=== PATIENT | male | born 1950 ===

== ENCOUNTER 2020-11-01 00:48 | Emergency (ER) | payer MEDICARE, BC ==
[2020-11-01] MEDS ORDERED: Acetaminophen/oxyCODONE 325-5 MG Tab PO ONE (00:49)
--- NOTE | 2020-11-01 01:15 | EDM.PDOC ---
ED HPI GENERAL MEDICAL PROBLEM - General Stated Complaint: PAIN IN LEFT LEG Time Seen by Provider: 11/01/20 01:15 Source of Information: Reports: Patient, Family, RN, RN Notes Reviewed History Limitations: Reports: No Limitations - History of Present Illness INITIAL COMMENTS - FREE TEXT/NARRATIVE: Patient is a 70-year-old male who presents to ER with complaint of left anterior lower extremity pain. Patient states around New Year' he did have a tibia stress fracture. He wore a Cam walking boot, and this did heal. Patient states his left lower leg has been hurting for approximately a month but last evening got very severe. Very tender to touch to the anterior left lower leg, tender to stand and walk. Patient rates pain 10/10. Patient states no new injury to the ankle or lower leg. Onset: Gradual Left Lower Leg Pain Score (Numeric/FACES): 10 - Related Data Allergies Allergy/AdvReac Type Severity Reaction Status Date / Time No Known Allergies Allergy Verified 11/01/20 01:20 Home Meds: Home Meds allopurinoL [Allopurinol] 300 mg PO DAILY 10/11/13 [History] amLODIPine [Norvasc] 2.5 mg PO DAILY 10/11/13 [History] Fenofibrate Nanocrystallized [Fenofibrate] 145 mg PO DAILY 11/01/20 [History] Olmesartan [Benicar] 10 mg PO DAILY 11/01/20 [History] Past Medical History Other Cardiovascular History: low heart rate Oncologic (Cancer) History: Reports: Prostate - Past Surgical History Other Musculoskeletal Surgeries/Procedures:: back surgery in 1996 Social & Family History - Living Situation & Occupation Living situation: Reports: with Family Occupation: Retired Review of Systems - Review of Systems Review Of Systems: Comprehensive ROS is negative, except as noted in HPI. ED EXAM, GENERAL - Physical Exam Exam: See Below Exam Limited By: No Limitations General Appearance: Alert, WD/WN, Mild Distress Eye Exam: Bilateral Eye: EOMI, Normal Inspection Ears: Normal External Exam, Hearing Grossly Normal Nose: Normal Inspection Throat/Mouth: Normal Inspection, Normal Voice, No Airway Compromise Head: Atraumatic, Normocephalic Neck: Normal Inspection, Supple, Non-Tender, Full Range of Motion Respiratory/Chest: No Respiratory Distress, Lungs Clear, Normal Breath Sounds, No Accessory Muscle Use, Chest Non-Tender Cardiovascular: Normal Peripheral Pulses, Regular Rate, Rhythm, No Edema, No Gallop, No JVD, No Murmur, No Rub Peripheral Pulses: 2+: Radial (L), Radial (R), Dorsalis Pedis (L) GI/Abdominal: Normal Bowel Sounds, Soft, Non-Tender (Male) Exam: Deferred Rectal (Males) Exam: Deferred Back Exam: Normal Inspection, Full Range of Motion, NT Extremities: Normal Inspection, Normal Range of Motion, Non-Tender, Normal Capillary Refill, No Pedal Edema Neurological: Alert, Oriented, CN II-XII Intact, Normal Cognition, Normal Reflexes, No Motor/Sensory Deficits, Other (limp with cam walker) Psychiatric: Normal Affect, Normal Mood Skin Exam: Warm, Dry, Intact, Normal Color, No Rash Lymphatic: No Adenopathy Course - Vital Signs Last Recorded V/S: Last Vital Signs Temp 98.3 F 11/01/20 01:24 Pulse 84 11/01/20 01:24 Resp 18 11/01/20 01:24 BP 155/70 H 11/01/20 01:24 Pulse Ox 98 11/01/20 01:24 - Orders/Labs/Meds Labs: Laboratory Tests 11/01/20 11/01/20 11/01/20 Range/Units 01:34 01:34 01:34 WBC 6.5 (5.0-10.0) 10^3/uL RBC 4.89 (4.6-6.2) 10^6/uL Hgb 15.3 (14.0-18.0) g/dL Hct 44.0 (40.0-54.0) % MCV 90.0 (80-100) fL MCH 31.3 (27.0-34.0) pg MCHC 34.8 (33.0-35.0) g/dL Plt Count 197 (150-450) 10^3/uL Neut % (Auto) 61.2 (42.2-75.2) % Lymph % (Auto) 26.4 (20.5-50.1) % Swift % (Auto) 9.9 H (2-8) % Eos % (Auto) 2.2 (1.0-3.0) % Baso % (Auto) 0.3 (0.0-1.0) % D-Dimer, Quantitative < 100 (0-400) ng/mL Sodium 142 (136-145) mmol/L Potassium 4.4 (3.5-5.1) mmol/L Chloride 108 H (98-107) mmol/L Carbon Dioxide 27 (21-32) mmol/L Anion Gap 11.4 (7-13) mEq/L BUN 8 (7-18) mg/dL Creatinine 0.98 (0.70-1.30) mg/dL Est Cr Clr Drug Dosing 65.92 mL/min Estimated GFR (MDRD) > 60 BUN/Creatinine Ratio 8.2 (No establ ref range) Glucose 104 H (70-99) mg/dL Calcium 8.0 L (8.5-10.1) mg/dL Total Bilirubin 0.7 (0.2-1.0) mg/dL AST 17 (15-37) U/L ALT 28 (16-63) U/L Alkaline Phosphatase 62 (46-116) U/L Total Protein 6.2 L (6.4-8.2) g/dL Albumin 3.4 (3.4-5.0) g/dL Globulin 2.8 Albumin/Globulin Ratio 1.2 Meds: Medications Discontinued Medications Generic Name Dose Route Start Last Admin Trade Name Freq PRN Reason Stop Dose Admin Hydrocodone Bitart/Acetaminophen 1 tab 11/01/20 02:00 11/01/20 02:17 Acetaminophen/Hydrocodone 325-10 Mg Tab PO 11/01/20 02:01 1 tab ONETIME ONE Administration - Radiology Interpretation Free Text/Narrative:: Left tib/fib xray: PROCEDURE INFORMATION: Exam: XR Left Tibia and Fibula Exam date and time: 11/01/2020 1:56 AM Age: 70 years old Clinical indication: Pain; Lower leg; Left; Additional info: Severe pain in lle, recent stress FX TECHNIQUE: Imaging protocol: XR Left tibia and fibula. Views: 2 views. COMPARISON: CR Tibia Fibula Lt 06/06/2020 12:33 PM FINDINGS: Bones/joints: No acute fracture or dislocation. Soft tissues: Normal. IMPRESSION: No acute fracture or dislocation. Thank you for allowing us to participate in the care of your patient. Dictated and Authenticated by: Darinel Vásquez DO 11/01/2020 2:36 AM Central Time ([place] & [place]) See rad report - Re-Assessments/Exams Free Text/Narrative Re-Assessment/Exam: 11/01/20 02:40 Discussed labs and diagnostics with patient and in the room. No acute fracture noted on the left lower leg, D-dimer negative. Patient encouraged to follow-up with his primary care provider for further work-up, encouraged to continue wearing the Cam walking boot. Patient encouraged to limit walking and weightbearing until pain improves. Encouraged to elevate and rest. Discussed sending pain medications home with the patient until seen by his primary care provider. Departure - Departure Time of Disposition: 02:56 Disposition: Home, Self-Care 01 Condition: Fair Clinical Impression: Pain in left lower leg - Discharge Information *PRESCRIPTION DRUG MONITORING PROGRAM REVIEWED*: No *COPY OF PRESCRIPTION DRUG MONITORING REPORT IN PATIENT CHRISTIE: No Instructions: Pain Medicine Instructions, [id number] Forms: ED Department Discharge Additional Instructions: Continue wearing the walking boot while up and around Rest and elevate as much as possible May use Tylenol and/or Ibuprofen as directed for pain RX: Percocet 5/325mg, 1-2 tablets every 4-6 hours as needed for severe pain Do not take Tylenol with the percocet See your primary care provider this week for further evaluation if no improvement Return to the ER with any worsening of symptoms Sepsis Event Note (ED) - Focused Exam Vital Signs: Vital Signs Temp Pulse Resp BP Pulse Ox 11/01/20 01:24 98.3 F 84 18 155/70 H 98
[2020-11-01 01:58] LABS: ANION GAP 11.4 mEq/L (7-13); CHLORIDE,CL 108 mmol/L (98-107); SODIUM,NA 142 mmol/L (136-145)
[2020-11-01] MEDS ORDERED: Acetaminophen/HYDROcodone 325-10 MG Tab PO ONE (02:00)
--- NOTE | 2020-11-01 02:36 | CR ---
PROCEDURE INFORMATION: Exam: XR Left Tibia and Fibula Exam date and time: 11/01/2020 1:56 AM Age: 70 years old Clinical indication: Pain; Lower leg; Left; Additional info: Severe pain in lle, recent stress FX TECHNIQUE: Imaging protocol: XR Left tibia and fibula. Views: 2 views. COMPARISON: CR Tibia Fibula Lt 06/06/2020 12:33 PM FINDINGS: Bones/joints: No acute fracture or dislocation. Soft tissues: Normal. IMPRESSION: No acute fracture or dislocation.
[2020-11-01] MEDS ORDERED: Acetaminophen/oxyCODONE 325-5 MG Tab ONE (02:58)
== END 2020-11-01 03:10 | disposition home or self-care (01) ==
LOC: DL.ED 00:48
DX: M79.662 Pain in left lower leg (principal)
CPT/HCPCS: 36415; 73590; 80053; 85025; 85379; 99283; A9270